=== PATIENT | male | born 1975 | race Hispanic/Latino ===

== ENCOUNTER 2024-02-11 06:00 | Day surgery (SDC) | payer OTHER ==
[2024-02-06 10:03] LABS: BASOPHILS # (AUTO) 0.04 K/uL (0.00-0.20); BASOPHILS % (AUTO) 0.5 % (0.0-5.0); EOSINOPHILS # (AUTO) 0.05 K/uL (0.00-0.70); EOSINOPHILS % (AUTO) 0.7 % (0.0-8.0); HEMATOCRIT 42.9 % (42-54); IMMATURE GRANULOCYTE ABSOLUTE 0.06 K/uL (0-1); LYMPHOCYTES # (AUTO) 1.1 K/uL (1.0-4.8); LYMPHOCYTES % (AUTO) 14.6 % (21.0-51.0); MEAN CORPUSCULAR HEMOGLOBIN 29.2 pg (27.0-33.0); MEAN CORPUSCULAR HGB CONC 33.1 g/dL (32.0-36.0); MEAN CORPUSCULAR VOLUME 88.3 fL (79-99); MONOCYTES # (AUTO) 0.4 K/uL (0.1-1.0); MONOCYTES % (AUTO) 5.4 % (3.0-13.0); NEUTROPHILS # (AUTO) 5.8 K/uL (1.8-7.7); PLATELET COUNT (AUTO) 242 K/uL (130-400); RED BLOOD CELL COUNT(AUTO) 4.86 MIL/uL (4.50-6.20); RED CELL DISTRIBUTION WIDTH 13.2 % (11.0-15.5); WHITE BLOOD COUNT (AUTO) 7.4 K/uL (4.8-10.8)
[2024-02-06 10:22] VITALS: BP 133/71; PULSE 87; RESP 18; TEMP 97.7
[~2024-02-11] VITALS: Ht 167.6 cm; Wt 136.1 kg
[2024-02-11] VITALS (14 sets, daily range): BP systolic 110–135; BP diastolic 65–88; PULSE 81–95; RESP 17–20; TEMP 97.1–97.6
[2024-02-11] MEDS: BUPIvacaine/PF 0.25% 30ML VIAL IJ ONE
[~2024-02-11 06:00] MED LIST: BENZ1TAB83 PO; LISI2.5T13 PO; MELA5CAP PO; OMEP40CA21 PO; PERP16TA5 PO; PERP4TAB10 PO; RISP3TAB77 PO; TOPI-97 PO; latanoprost OU; vitamin b12 PO
[2024-02-11] MEDS ORDERED: BUPIvacaine/PF 0.25% 30ML VIAL IJ ONE (06:54)
[2024-02-11] MEDS ORDERED: dexaMETHasone SOD PHOSPHATE 10MG/ML 1ML VIAL ONE (07:31)
[2024-02-11] MEDS ORDERED: LIDOCAINE PF 100MG/5ML (2%) SYRINGE 5ML ONE (07:31)
[2024-02-11] MEDS ORDERED: ondanSETRON 4MG INJ ONE (07:33)
[2024-02-11] MEDS ORDERED: rocuRONium bROMide 10MG/1ML 5ML VL ONE (07:33)
[2024-02-11] MEDS ORDERED: FENTanyl CITRate PF 50 MCG/1 ML 2ML VIAL ONE ×2 (07:33→09:44)
[2024-02-11] MEDS ORDERED: proPOFol 10 MG/ML 20ML VIAL IV ONE ×2 (07:33→08:39)
[2024-02-11] MEDS ORDERED: SUCCINYLCHOLINE CHLORIDE 20 MG/ML 10 ML VIAL ONE (07:33)
[2024-02-11] MEDS ORDERED: GLYCOPYRROLATE 0.2 MG/ML 5 ML VIAL ONE (07:33)
[2024-02-11] MEDS ORDERED: NEOSTIGMINE METHYLSULFATE 1MG/ML IV ONE (07:33)
[2024-02-11] MEDS ORDERED: MIDAZOLAM HCL 1 MG/ML 2ML VIAL ONE (07:34)
[2024-02-11] MEDS: LACTATED RINGERS 1000ML 1,000 ML IV ONE (08:21)
[2024-02-11] MEDS: ceFAZolin SODIUM 2 GM VIAL ONE (08:22)
[2024-02-11] MEDS: ceFAZolin SODIUM 1 GM VIAL ONE (08:22)
[2024-02-11] MEDS: ceFAZolin SODIUM 2 GM VIAL IVPB ONE (09:30)
[2024-02-11] MEDS ORDERED: ePHEDrine SULFate 50 MG/ML AMPULE ONE (09:45)
--- NOTE | 2024-02-11 10:14 | OP ---
Operative Note: DATE OF PROCEDURE: 02/11/24 SURGEON: MASOOD SCRUGGS MD HYDRAULIC JACK ADJUSTER: [] ANESTHESIA: General ANESTHESIOLOGIST/FINANCIAL SALES MANAGER: Keenan JOHNSON PREOPERATIVE DIAGNOSIS: Neck lipoma POSTOPERATIVE DIAGNOSIS: Neck lipoma measuring 11.5 x 7 x 3 cm SYNOPSIS: [] PROCEDURE: Excision of posterior neck lipoma ESTIMATED BLOOD LOSS: 5 cc INDICATIONS: Neck lipoma growing and causing pain Specimens removed: Posterior Neck lipoma Devices left in place: 7 [place] flat drain DESCRIPTION OF PROCEDURE: Patient was brought to the operating room placed on the operating table in a supine position once general endotracheal anesthesia was achieved, patient was repositioned into the left lateral and patient's neck areas prepped and draped in sterile fashion. I created a transverse incision over top of the patient's lipoma and dissected through the skin and subcutaneous tissue to expose the fascia of the lipoma. Detached the lipoma from all its surrounding attachments and down to the muscle. Excised it completely and obtain hemostasis. Measured it at 11.5 x 7 x 3 cm in size. We then proceeded to irrigate. Placed a seven [place] flat drain into the cavity and brought it out through the skin secured it with 2-0 nylon suture. We closed skin in two layers. Subcutaneous tissues closed with running 3-0 Vicryl suture. Skin is closed with 4-0 Monocryl running subcuticular fashion. Dermabond is applied over top. All counts correct x2 at the end of the procedure. Patient tolerated the procedure well MASOOD SCRUGGS MD Feb 11, 2024 10:14
[2024-02-11] MEDS: MEPERIDINE-PF 25 MG/ML SYG ONE (10:41)
--- NOTE | 2024-02-11 11:40 | NUR ---
BOTH PT AND MOTHER DEMONSTRATED VERBALLY AND PHYSICALLY HOW TO DRAIN JESSEE DRAIN AND HOW TO LEAVE BULB DEFLATED AND READY FOR USE. PT GIVEN EXTRA TAPE AND A SHEET TO RECORD DRAINAGE. IV REMOVED SITE ASYMPTOMATIC.
== END 2024-02-11 11:50 | disposition home or self-care (01) ==
LOC: DAH 06:00
PROVIDERS: ATTEND Student in an Organized Health Care Education/Training Program
DX: D17.0 Benign lipomatous neoplasm of skin and subcutaneous tissue of head, face and neck (principal); G47.33 Obstructive sleep apnea (adult) (pediatric); E66.01 Morbid (severe) obesity due to excess calories; I10 Essential (primary) hypertension; E78.5 Hyperlipidemia, unspecified; K21.9 Gastro-esophageal reflux disease without esophagitis; F20.9 Schizophrenia, unspecified; Z68.42 Body mass index [BMI] 45.0-49.9, adult; Z79.899 Other long term (current) drug therapy
CPT/HCPCS: 85025; 36415; 21554; 88304; A6260; A4663; J7120; J3010 ×2; J0690 ×3; J1100; J0330; J3490 ×2; J2003; J2250; J2704 ×2; J2405; J2175; A4930; A4215; A4213; A4222; A4221; A4216; A4450; A4223 ×2; A4600; J2710; J0665